=== PATIENT | female | born 1965 | race Caucasian/White ===

== ENCOUNTER 2022-01-03 09:31 | Inpatient (IN) | payer OTHER ==
[~2022-01-03] VITALS: Ht 165.1 cm; Wt 137.4 kg
[~2022-01-03 09:31] MED LIST: Naprosyn500 MG PO; Veetids 500500 MG PO
[2022-01-03 10:35] LABS: BASOPHILS ABSOLUTE AUTO 0.06 K/mm3 (0.00-0.23); BASOPHILS PERCENT AUTO 1 % (0-2); EOSINOPHILS ABSOLUTE AUTO 0.12 K/mm3 (0.00-0.68); EOSINOPHILS PERCENT AUTO 1 % (0-6); Hematocrit 45.8 % (33.0-51.0); Hemoglobin 14.6 g/dL (11.5-16.0); IMMATURE GRAN ABSOLUTE AUTO 0.04 K/mm3 (0.00-0.10); IMMATURE GRAN PERCENT AUTO 0 % (0-1); LYMPHOCYTES ABSOLUTE AUTO 2.21 K/mm3 (0.84-5.20); LYMPHOCYTES PERCENT AUTO 21 % (21-46); MONOCYTES ABSOLUTE AUTO 0.57 K/mm3 (0.16-1.47); MONOCYTES PERCENT AUTO 5 % (4-13); Mean Corpuscular HGB 29.4 pg (26.0-34.0); Mean Corpuscular HGB Conc 31.9 g/dL (31.5-36.5); Mean Corpuscular Volume 92 fL (80-100); Mean Platelet Volume 10.5 fL (9.1-12.4); NEUTROPHILS ABSOLUTE AUTO 7.64 K/mm3 (1.96-9.15); NEUTROPHILS PERCENT AUTO 72 % (41-73); Platelet Count 300 K/mm3 (150-400); RDW Coefficient Variation 14.9 % (11.7-14.2); RDW Standard Deviation 50.9 fL (35.1-46.3); Red Blood Cell Count 4.96 M/mm3 (3.80-5.20); White Blood Cell Count 10.64 K/mm3 (4.00-11.30)
[2022-01-03 10:52] LABS: Albumin, Blood 3.4 g/dL (3.4-5.0); Albumin/Globulin Ratio 0.7 (0.8-1.8); Bilirubin, Total 0.4 mg/dL (0.1-1.0); Bun/Creatinine Ratio 21.2 (12.0-20.0); Calcium, Blood 9.3 mg/dL (8.5-10.1); Creatinine, Blood 0.47 mg/dL (0.40-1.00); Globulin, Blood 5.1 g/dL (2.2-4.0); Potassium, Blood 4.5 mmol/L (3.5-5.5); Total Protein, Blood 8.5 g/dL (6.4-8.2)
[2022-01-03 11:31] LABS: Influenza A, PCR NEGATIVE (NEGATIVE); Influenza B, PCR NEGATIVE (NEGATIVE); Resp Syncytial Virus, PCR NEGATIVE (NEGATIVE); SARS-Cov-2 (COVID-19) PCR, MMC NEGATIVE (NEGATIVE)
--- NOTE | 2022-01-03 16:38 | NUR ---
PATIENT ADMITTED FOR HYPOXIA Patient is AOx4, saturations stable on 2lpm, dry hacking cough. Inspiratory wheezing noted. High BP, ordered new med, Procardia 30mg. Hydralazine PRN ordered for SBP >180. Patient currently not on any home medications. Patient independent in the room, regular diet ordered.
--- NOTE | 2022-01-04 04:47 | NUR ---
SHIFT SUMMARY: PT IS A/OX4. CURRENTLY ON 2L OF O2 (RA IS BASELINE). SHE IS INDEPENDENT IN THE ROOM AND TOOK A SHOWER THIS SHIFT. SHE WAS SET UP WITH A HOSPITAL CPAP BY RT. SHE HAD NO C/O AND WE'LL CONTINUE TO MONITOR.
[2022-01-04 05:09] LABS: BASOPHILS ABSOLUTE AUTO 0.05 K/mm3 (0.00-0.23); BASOPHILS PERCENT AUTO 0 % (0-2); EOSINOPHILS ABSOLUTE AUTO 0.02 K/mm3 (0.00-0.68); EOSINOPHILS PERCENT AUTO 0 % (0-6); Hematocrit 45.2 % (33.0-51.0); Hemoglobin 14.5 g/dL (11.5-16.0); IMMATURE GRAN ABSOLUTE AUTO 0.09 K/mm3 (0.00-0.10); IMMATURE GRAN PERCENT AUTO 1 % (0-1); LYMPHOCYTES ABSOLUTE AUTO 3.68 K/mm3 (0.84-5.20); LYMPHOCYTES PERCENT AUTO 23 % (21-46); MONOCYTES ABSOLUTE AUTO 1.12 K/mm3 (0.16-1.47); MONOCYTES PERCENT AUTO 7 % (4-13); Mean Corpuscular HGB 29.8 pg (26.0-34.0); Mean Corpuscular HGB Conc 32.1 g/dL (31.5-36.5); Mean Corpuscular Volume 93 fL (80-100); Mean Platelet Volume 10.5 fL (9.1-12.4); NEUTROPHILS ABSOLUTE AUTO 11.05 K/mm3 (1.96-9.15); NEUTROPHILS PERCENT AUTO 69 % (41-73); Platelet Count 355 K/mm3 (150-400); RDW Coefficient Variation 14.8 % (11.7-14.2); Red Blood Cell Count 4.86 M/mm3 (3.80-5.20); White Blood Cell Count 16.01 K/mm3 (4.00-11.30)
[2022-01-04 05:43] LABS: Albumin, Blood 3.5 g/dL (3.4-5.0); Anion Gap 9 mmol/L (6-16); Blood Urea Nitrogen 13 mg/dL (8-24); Bun/Creatinine Ratio 26.1 (12.0-20.0); CO2, Blood 25 mmol/L (21-32); Calcium, Blood 9.5 mg/dL (8.5-10.1); Chloride, Blood 106 mmol/L (98-108); Glomerular Filtration Rate 111 (60-); Glucose, Blood 96 mg/dL (70-99); Magnesium, Blood 2.2 mg/dL (1.6-2.4); Phosphorus, Blood 3.8 mg/dL (2.5-4.9); Potassium, Blood 3.9 mmol/L (3.5-5.5); Sodium, Blood 140 mmol/L (136-145)
--- NOTE | 2022-01-04 08:51 | NUR ---
Patient reported she was unable to sleep last night, felt like she couldn't breath when lying down. Wheezing, diminshed sounds at lung bases. Frequent dry hacking cough. Tearful, during morning med pass. Patient stated all the medications make her anxious. She stopped taking meds for anxiety/depression this last year, because she didn't want to "live that way". Reports increased anxiety at home, has been focused on political issues, and this causes her increased anxiety and stress. MD assessed patient at bedside, plan is to wean patient down to RA, possible discharge today.
--- NOTE | 2022-01-04 11:10 | NUR ---
PATIENT WAS SITTING UP ON EDGE OF BED WHEN I WENT TO CHECK ON HER. SHE STATED THAT SHE JUST HAS SOME SOB WHILE LAYING DOWN. LUNG SOUNDS WERE WHEEZY AT THIS TIME. RT IS SCHEDULED TO ADMINISTER A DUO NEB SHORTLY- AND DID SO. DR. MUELLER WAS UPDATED. DR. MUELLER STATED OKAY TO LEAVE OUT IV, AND ORAL BP MEDICATION CAN BE GIVEN IF PRESSURE INCREASES AND THE NEED ARISE. HE ALSO ORDERED A ONE TIME DOSE OF BUMEX, WHICH WILL BE ADMINISTERED NOW. PLAN FOR TOMORROW IS TO INCREASE HER BP MEDICATION DOSE. IF BP REMAINS HIGH, AND SOB DOESN'T STOP HE MAY ORDER ANOTHER ECHO. CELEXA WILL ASLO BE STARTED AT THIS TIME FOR DEPRESSION AND ANXIETY.
--- NOTE | 2022-01-04 11:59 | NUR ---
WBC JUMPED TO 16. FROM 10. OVERNIGHT. SPUTUM CULTURE OBTAINED AND SENT. PROVIDER NOTIFIED.
--- NOTE | 2022-01-04 16:54 | NUR ---
PATIENT EXPERIENCING SOB AND WHEEZING DURING THIS SHIFT. A SPUTUM SAMPLE WAS COLLECTED. RESULTS ARE STILL PENDING. BUMEX WAS GIVEN A ONE TIME DOSE. AN INCREASE OF BP DOSE WILL OCCUR TOMORROW SHE IS STILL HYPERTENSIVE. DR. MUELLER SPOKE OF ORDERING AN ECHO. THE ECHO HAS NOT BEEN COMPLETED YET TODAY. PATIENT STARTED CELEXA TODAY FOR ANXIETY.
--- NOTE | 2022-01-04 20:11 | NUR ---
NURSE NOTE: JUHI HERNANDEZ NOTIFIED BP CURRENTLY 189/84- CURRENTLY NO IV, REPORTED PER DAY SHIFT COVERING OKAY TO LEAVE IV OUT- CONTACT IF SYSTOLIC BP IS GREATER THAN 180 FOR PO ANTIHYPERTENSIVE MEDICATION. JUHI HERNANDEZ GAVE TELEPHONE ORDER FOR PO 25MG HYDRALAZINE Q6H FOR SYSTOLIC BP GREATER THAN 180.
--- NOTE | 2022-01-05 03:52 | NUR ---
SHIFT SUMMARY: PT A/OX4, ADLIB IN ROOM. CONTINUED HYPERTENSION NOTED THROUGHOUT THE NIGHT. 2 DOSES OF PO 25MG HYDRALAZINE GIVEN TO BRING BP LESS THAN SYSTOLIC 180. PT CONTINUES TO HAVE SHORTNESS OF BREATH WITH EXERTION, REQUESTS TO SLEEP IN CHAIR TO ASSIST WITH BREATHING. NO COMPLAINTS OF PAIN THROUGHOUT THE NIGHT. CALLS APPROPRIATELY
--- NOTE | 2022-01-05 17:15 | NUR ---
SHIFT SUMMARY- PT HAS HAD NO ACUTE CHANGE T/O THE SHIFT. PT CURRENTLY WAITING FOR AN ECHO THAT WILL LIKELY BE DONE TOMORROW D/T THE HOLIDAY IT WAS NOT DONE TODAY. PT ALERT ORIENTED AND INDEPENDENT IN THE ROOM. PT CURRENTLY SITTING AT THE EOB WITH THE CALL LIGHT IN REACH NO S&S OF DISTRESS AT THIS TIME WILL CTM AND PASS ON TO NIGHT RN IN BEDSIDE REPORT.
--- NOTE | 2022-01-05 19:39 | NUR ---
pt had an episode of sob with tachy hr- PT BIOX WAS ALARMING AND SHE CALLED FOR ASSISTANCE. RN ARRIVED SHE CALLED. PT WAS ATTEMPTING TO PUT ON HER SWEATER AND HER BIOX BEGAN BEEPING HER HR WAS 116 AND THE PT BECAME ANXIOUS THERE WAS SOMETHING WRONG. O2 SATS WERE 83% AT THAT TIME AND THE PT SAID SHE FELT LIKE HER HEART WAS RACING AND BEATING OUT OF HER CHEST. INCREASED O2 VIA NC TO 5L FROM 3L AND INSTRUCTED THE PT ON PURSED LIP BREATHING. CALLED RT THURMAN FOR A BREATHING Tx, HE CAME TO SEE THE PT. O2 SATS NOW 91% ON 5L VIA NC HR IN THE 80'S. NO S&S OF DISTRESS AT THE TIME OF BEDSIDE REPORT.
--- NOTE | 2022-01-05 19:46 | NUR ---
RECEIVED REPORT AND ASSUMED CARE OF PT. SHE IS SITTING IN A CHAIR AT THE BEDSIDE, O2 AT 5 LPM TO MAINTAIN SATS ABOVE 90%. SHE DENIES ANY NEEDS AT THIS TIME. CALL LIGHT IN REACH.
--- NOTE | 2022-01-06 06:07 | NUR ---
SHIFT SUMMARY: RAPHAEL IS A&OX4. VSS, NO ACUTE EVENTS OVERNIGHT, BP IMPROVED THIS AM. SHE HAS MAINTAINED HER O2 SATS ON 5 L VIA NC. PT REPORTED INCREASED CONGESTION, COUGHING UP SPUTUM, AND FEELING INCREASED CHEST CONGESTION WHEN SHE TRIED TO LIE DOWN. ADDITIONAL PILLOWS HELPED HER TO OBTIAN SOME REST, RECLINER PROVIDED FOR ANOTHER POSSIBLE POSITION TO SLEEP IN. CUP PROVIDED FOR SPUTUM SAMPLE, PT REQUESTED TO EXPECTORATE INTO CUP IF SHE IS ABLE TO COUGH UP SPUTUM. SHE REPORTED SOME SUCCESS ALLEVIATING HER ANXIETY THROUGH DISTRACTION. SHE IS INDEPENDENT IN THE ROOM, TOLERATING PO INTAKE WELL, AND USES THE CALL LIGHT APPROPRIATELY. SHE IS LYING IN BED WITH THE O2 VIA NC AND CONTINUOUS PULSE OX IN PLACE, CALL LIGHT IN REACH, UPPER AIRWAY CONGESTION HEARD. WILL REPORT TO DAY SHIFT RN.
--- NOTE | 2022-01-06 13:31 | NUR ---
ECHO RESULTS ARE IN. CALLED DR MUELLER HE WILL REVIEW AND COME DISCUSS THE RESULTS WITH THE PT.
--- NOTE | 2022-01-06 18:56 | NUR ---
SHIFT SUMMARY- PT HAS HAD NO ACUTE CHANGE T/O THE SHIFT, SHE REMAINS ON 5L VIA NC. ECHO COMPLETED TODAY SPOKE TO THE PT SHE IS AWARE OF THE RESULTS. PLAN IS FOR HOME O2 EVAL AND POSSIBLE DC HOME TOMORROW. PT CURRENTLY IN BED, SITTING AT THE EOB, CALL LIGHT IN REACH NO S&S OF DISTRESS WILL CTM AND PASS ON TO NIGHT RN IN BEDSIDE REPORT.
--- NOTE | 2022-01-07 04:22 | NUR ---
SHIFT SUMMARY: A/OX4, ADLIB IN ROOM. PT REMAINS ON 5L O2 SATING IN THE 90'S. ATTEMPTED TO USE CPAP TONIGHT BUT WAS UNABLE TO TOLERATE FACE MASK DUE TO CLAUSTROPHOBIA. NO COMPLAINTS OF PAIN OR DIFFICULTY BREATHING THROUGHOUT THE NIGHT. LUNGS SOUNDS SLIGHTLY DIMINISHED WITH EXPIRATORY WHEEZE, SOME CONTINUED DYSPNEA ON EXERTION.
[2022-01-07 05:18] LABS: BASOPHILS ABSOLUTE AUTO 0.09 K/mm3 (0.00-0.23); BASOPHILS PERCENT AUTO 1 % (0-2); EOSINOPHILS ABSOLUTE AUTO 0.05 K/mm3 (0.00-0.68); EOSINOPHILS PERCENT AUTO 0 % (0-6); Hematocrit 44.8 % (33.0-51.0); IMMATURE GRAN ABSOLUTE AUTO 0.13 K/mm3 (0.00-0.10); IMMATURE GRAN PERCENT AUTO 1 % (0-1); LYMPHOCYTES ABSOLUTE AUTO 4.59 K/mm3 (0.84-5.20); LYMPHOCYTES PERCENT AUTO 29 % (21-46); MONOCYTES ABSOLUTE AUTO 1.11 K/mm3 (0.16-1.47); MONOCYTES PERCENT AUTO 7 % (4-13); Mean Corpuscular HGB 29.3 pg (26.0-34.0); Mean Corpuscular HGB Conc 31.3 g/dL (31.5-36.5); Mean Corpuscular Volume 94 fL (80-100); Mean Platelet Volume 10.1 fL (9.1-12.4); NEUTROPHILS ABSOLUTE AUTO 10.15 K/mm3 (1.96-9.15); NEUTROPHILS PERCENT AUTO 63 % (41-73); Platelet Count 366 K/mm3 (150-400); RDW Standard Deviation 51.7 fL (35.1-46.3); Red Blood Cell Count 4.78 M/mm3 (3.80-5.20); White Blood Cell Count 16.12 K/mm3 (4.00-11.30)
[2022-01-07 05:36] LABS: Albumin, Blood 3.3 g/dL (3.4-5.0); Anion Gap 7 mmol/L (6-16); Blood Urea Nitrogen 21 mg/dL (8-24); Bun/Creatinine Ratio 40.3 (12.0-20.0); CO2, Blood 27 mmol/L (21-32); Calcium, Blood 9.3 mg/dL (8.5-10.1); Chloride, Blood 106 mmol/L (98-108); Creatinine, Blood 0.52 mg/dL (0.40-1.00); Glomerular Filtration Rate 110 (60-); Glucose, Blood 119 mg/dL (70-99); Magnesium, Blood 2.3 mg/dL (1.6-2.4); Phosphorus, Blood 4.2 mg/dL (2.5-4.9); Potassium, Blood 3.7 mmol/L (3.5-5.5); Sodium, Blood 140 mmol/L (136-145)
[2022-01-07] MEDS ORDERED: ESCI10 PO (12:29)
[2022-01-07] MEDS ORDERED: AMOCLA875 PO (12:29)
[2022-01-07] MEDS ORDERED: TARGADOX50 MG PO (12:30)
[2022-01-07] MEDS ORDERED: GUAI600T33 PO (12:30)
[2022-01-07] MEDS ORDERED: FURO20 PO (12:30)
[2022-01-07] MEDS ORDERED: ALBU90OI6 INH (12:31)
[2022-01-07] MEDS ORDERED: POTA10T PO (12:32)
[2022-01-07] MEDS ORDERED: NIFE60ER PO (12:32)
[2022-01-07] MEDS ORDERED: NICODERM CQ1 EA11 TOP (12:32)
[2022-01-07] MEDS ORDERED: Prednisone10 MG PO (12:35)
--- NOTE | 2022-01-07 14:26 | NUR ---
DISCHARGE NOTE- PT WAS GIVEN VERBAL AND WRITTEN DISCHARGE INSTRUCTIONS AND ACKNOWLEDGED UNDERSTANDING OF THEM. PT WAS DC'D HOME WITH HOME O2 AT 2L VIA NC. PT WAS ESCORTED OUT VIA WC BY THE CREW CAR DRIVER NO S&S OF DISTRESS AT THE TIME OF DISCHARGE.
== END 2022-01-07 13:51 | disposition home or self-care (01) | DRG 193 ==
LOC: ER 09:31 → MEDS 09:32
PROVIDERS: Physician Assistant; ADMIT Family Medicine
DX: J18.9 Pneumonia, unspecified organism (principal); J96.01 Acute respiratory failure with hypoxia; J44.1 Chronic obstructive pulmonary disease with (acute) exacerbation; J44.0 Chronic obstructive pulmonary disease with (acute) lower respiratory infection; Z20.822 Contact with and (suspected) exposure to COVID-19; J06.9 Acute upper respiratory infection, unspecified; R73.03 Prediabetes; J40 Bronchitis, not specified as acute or chronic; F17.210 Nicotine dependence, cigarettes, uncomplicated; F41.8 Other specified anxiety disorders; G47.33 Obstructive sleep apnea (adult) (pediatric); B97.89 Other viral agents as the cause of diseases classified elsewhere; Z99.89 Dependence on other enabling machines and devices
CPT/HCPCS: 0241U; 36415; 71045; 80053; 80069; 83735; 83880; 84484; 85025; 87070; 87205; 93005; 93010; 93306; 94640; 94660; 94664; 94760; 94761; 94762; 96372; 98960; 99285-25; 99406; A9270; G0378; J1650; J7512

== ENCOUNTER → 2023-03-02 | Outpatient (CLI) | payer OTHER ==
[~2023-03-02] MED LIST changes: +ALBU90OI6 INH; +AMOCLA875 PO; +ESCI10 PO; +FURO20 PO; +GUAI600T33 PO; +NICODERM CQ1 EA11 TOP; +NIFE60ER PO; +POTA10T PO; +Prednisone10 MG PO; +TARGADOX50 MG PO
== END ==
LOC: LAB 08:29 → LAB SHORT 08:29
DX: L60.2 Onychogryphosis (principal); B35.1 Tinea unguium
CPT/HCPCS: 88305; 88312

== ENCOUNTER → 2025-04-10 | Outpatient (CLI) | payer OTHER | LOC: LAB 15:42 → LAB SHORT 15:42 | DX: L60.2 Onychogryphosis (principal); B35.1 Tinea unguium | CPT/HCPCS: 88305; 88312 ==